=== PATIENT | female | born 1940 | race Caucasian/White ===

== ENCOUNTER 2021-01-29 14:06 | Emergency (ER) | payer OTHER, MEDICAID | END 2021-01-29 14:30 | disposition left against medical advice (07) | LOC: ED 14:06 | DX: Z53.21 Procedure and treatment not carried out due to patient leaving prior to being seen by health care provider (principal) ==

== ENCOUNTER 2021-02-07 05:29 | Emergency (ER) | payer OTHER, MEDICAID ==
[~2021-02-07] VITALS: Ht 157.5 cm; Wt 65.8 kg
[2021-02-07 05:36] VITALS: Ht 157.5 cm; Wt 65.8 kg
[2021-02-07 06:39] LABS: microscopic required? YES; urine erythrocyte TRACE (NEGATIVE)
[2021-02-07 06:46] LABS: CALCIUM 8.4 mg/dL (8.5-10.1); CARBON DIOXIDE 26.1 mmol/L (21-32); CHLORIDE SERUM 97 mmol/L (98-107); CREATININE SERUM 0.7 mg/dL (0.6-1.0); GLUCOSE SERUM 209 mg/dL (74-106); POTASSIUM SERUM 4.1 mmol/L (3.5-5.1); SODIUM SERUM 132 mmol/L (136-145)
[2021-02-07 06:49] LABS: BASOPHIL % 1.1 % (0.2-1.3); PLATELET COUNT 281 x10^3mcL (179-408); RED CELL DISTRIBUTION WIDTH 13.4 % (12.3-17.7)
[2021-02-07 06:51] LABS: ALBUMIN 3.4 g/dL (3.4-5.0); ALKALINE PHOSPHATASE 110 U/L (46-116); ALT/SGPT 20 U/L (14-59); AST/SGOT 17 U/L (15-37); BILIRUBIN TOTAL 0.33 mg/dL (0.20-1.00); LIPASE 134 IU/L (73-393); TOTAL PROTEIN, SERUM 7.3 g/dL (6.4-8.2)
[2021-02-07] MEDS ORDERED: ACETAMINOPHEN650 M6 PO (09:08)
[2021-02-07] MEDS ORDERED: CEPHALEXIN500 M1 PO (09:08)
[2021-02-07 09:50] VITALS: BP 166/67
[2021-02-07] MEDS ORDERED: NEU300 PO (23:11)
[2021-02-07] MEDS ORDERED: ACYCLOVIR800 MG PO (23:11)
== END 2021-02-07 09:50 | disposition home or self-care (01) ==
LOC: ED 05:29
PROVIDERS: Emergency Medicine
DX: N39.0 Urinary tract infection, site not specified (principal); K80.20 Calculus of gallbladder without cholecystitis without obstruction; E11.65 Type 2 diabetes mellitus with hyperglycemia; E87.1 Hypo-osmolality and hyponatremia; Z90.710 Acquired absence of both cervix and uterus
CPT/HCPCS: J0696; J2270; J2405; J7030; Q9967

== ENCOUNTER 2021-02-07 21:50 | Emergency (ER) | payer OTHER, MEDICAID ==
[~2021-02-07] VITALS: Ht 162.6 cm; Wt 69.4 kg
[~2021-02-07 21:50] MED LIST: ACETAMINOPHEN650 M6 PO; CEPHALEXIN500 M1 PO
[2021-02-07 21:58] VITALS: Ht 162.6 cm; Wt 69.4 kg
[2021-02-07] MEDS ORDERED: ACYCLOVIR800 MG PO (23:11)
[2021-02-07] MEDS ORDERED: NEU300 PO (23:11)
[2021-02-07 23:50] VITALS: BP 150/72
== END 2021-02-07 23:50 | disposition home or self-care (01) ==
LOC: ED 21:50
DX: B02.9 Zoster without complications (principal); E11.9 Type 2 diabetes mellitus without complications